=== PATIENT | male | born 1965 | race African-American/Black ===

== ENCOUNTER 2017-09-01 14:09 | Emergency (ER) | payer BC | END 2017-09-01 14:29 | disposition home or self-care (01) | LOC: ERS 14:09 | DX: J02.9 Acute pharyngitis, unspecified (principal); R59.0 Localized enlarged lymph nodes; I10 Essential (primary) hypertension; F17.210 Nicotine dependence, cigarettes, uncomplicated; Z71.6 Tobacco abuse counseling | CPT/HCPCS: 99406 ==

== ENCOUNTER 2018-09-25 17:24 | Emergency (ER) | payer BC ==
[2018-09-25] MEDS ORDERED: Ibuprofen 200 MG TAB ONE (18:46)
[2018-09-25] MEDS ORDERED: hydrOXYzine 25 MG TAB ONE (18:46)
== END 2018-09-25 19:00 | disposition home or self-care (01) ==
LOC: ERS 17:24
DX: T63.461A Toxic effect of venom of wasps, accidental (unintentional), initial encounter (principal); L30.9 Dermatitis, unspecified; F17.210 Nicotine dependence, cigarettes, uncomplicated
CPT/HCPCS: 99282

== ENCOUNTER 2019-05-11 06:49 | Emergency (ER) | payer BC, SELFPAY ==
--- NOTE | 2019-05-11 07:42 | RAD ---
XR Wrist 3 Lt View STANDARD History: Pain Comparison: None. Findings: No acute fracture or malalignment. Mild narrowing of the distal radial ulnar joint. Mild wi dening of the scapholunate interval. Moderate dorsal edema of the wrist. Impression: Chronic findings. No acute displaced fracture.
== END 2019-05-11 08:04 | disposition home or self-care (01) ==
LOC: ERS 06:49
DX: M25.532 Pain in left wrist (principal); I25.2 Old myocardial infarction; M10.9 Gout, unspecified; I10 Essential (primary) hypertension; F17.210 Nicotine dependence, cigarettes, uncomplicated; Z79.82 Long term (current) use of aspirin; Z79.899 Other long term (current) drug therapy